=== PATIENT | female | born 1995 | race Asian ===

== ENCOUNTER 2016-12-17 19:25 | Emergency (ER) | payer OTHER ==
--- NOTE | 2016-12-17 19:28 | PDOC ---
History of Present Illness - General History Source: Patient Exam Limitations: No Limitations - History of Present Illness Initial Comments: 12/17/16 20:27 The patient is an otherwise healthy 21 year old female who presents to the ED s/ p loss of consciousness and neck pain earlier today. Patient reports she was not drinking water throughout the day and she was working at her job outside in really hot weather. She reports a sudden onset of lightheadedness and loss consciousness for several seconds. Patient states she felt tired and took a nap after the loss of consciousness. Patient reports neck pain secondary to waking up from her nap. She states her neck pain radiates from the front of her neck to the bilateral sides of her neck and is worsened secondary to swallowing. She also reports neck swelling, now resolved. Patient also reports chest pain upon deep inspiration associated with present symptoms. Denies recent sick contact. Denies fevers or chills. Denies shortness of breath or palpitations. Denies cough. Denies headache. Denies changes in urinary output. Denies any other symptoms. 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 Patient reports smoking 5 cigarettes a day. MEDICATIONS: reviewed ALLERGIES: As per nursing notes General: No fevers or chills, no weakness, no weight loss HEENT: + neck pain, neck swelling No change in vision. No sore throat,. No ear pain CardioVascular: + chest pain. No shortness of breath Respiratory:No cough, or wheezing. Gastrointestinal: no nausea, vomiting, diarrhea or constipation, No rectal bleeding Genitourinary: No dysuria, hematuria, or frequency Musculoskeletal: No joint or muscle pain or swelling Neurologic: + loss of consciousness, lightheadedness. No headache Psychiatric: nor depression Skin: No rashes or easy bruising Endocrine: no increased thirst or abnormal weight change Allergic: no skin or latex allergy All other systems reviewed and normal General: Well-nourished well-developed individual, no acute distress HEENT: + mild erythema in the posterior oropharynx. tonsils normal, no exudate Neck: Supple, no meningeal signs, no lymphadenopathy Eyes::Pupils equal reactive and round, extraocular motion intact Chest: Nontender to palpation Cardiac: S1-S2 normal, regular rate and rhythm, no murmurs rubs or gallops Respiratory: Lungs clear to auscultation bilateral Abdomen: Soft, nondistended, normal bowel sounds, nontender to palpation diffusely Extremities: Warm, dry, no cyanosis, clubbing, or edema Skin: No rashes Neuro: Alert and oriented x3, nonfocal exam, grossly intact, normal gait Psych: Normal mood and affect <Tonia Peace - Last Filed: 12/17/16 20:27> - General History Source: Patient Exam Limitations: No Limitations - History of Present Illness Initial Comments: 12/17/16 20:32 A portion of this note was documented by scribe services under my direction. I have reviewed the details of the note, within reason, and agree with the documentation. The case summary and management plan written by me. Medical decision making: This is a 21-year-old female comes in complaining of sore throat and discomfort radiating from her throat to her upper chest area. Patient has some associated mild pleuritic type chest pain. Patient denies any fevers or chills. She denies any cough or congestion. Patient has had symptoms 1 day. Patient also complained of earlier a mild brief syncopal episode secondary to heat exhaustion and dehydration that she resolved by orally hydrating prior to coming in. Patient was reassured that this is most likely viral in origin however she was also recommended that she stop smoking and follow-up with her primary care if symptoms have not improved within 2-3 days. <Georgina Alonzo I - Last Filed: 12/17/16 20:38> - General Chief Complaint: Pain Stated Complaint: "MY THROAT FEELS SWOLLEN" Time Seen by Provider: 12/17/16 19:28 Past History <Tonia Peace - Last Filed: 12/17/16 20:27> - Immunization History Immunization Up to Date: Yes - Psycho/Social/Smoking Cessation Hx Anxiety: No Suicidal Ideation: No Smoking Status: No Smoking History: Never smoked Number of Cigarettes Smoked Daily: 0 <Georgina Alonzo I - Last Filed: 12/17/16 20:38> - Past Medical History Allergies/Adverse Reactions: Allergies Allergy/AdvReac Type Severity Reaction Status Date / Time No Known Allergies Allergy Verified 12/17/16 19:26 Home Medications: Ambulatory Orders Dextroamphetamine/Amphetamine [Adderall 10 mg Tablet] 20 mg PO BID 12/17/16 *Physical Exam - Vital Signs Last Vital Signs Temp Pulse Resp BP Pulse Ox 98.1 F 62 18 110/67 99 12/17/16 19:38 12/17/16 19:38 12/17/16 19:38 12/17/16 19:38 12/17/16 19:38 <Tonia Peace - Last Filed: 12/17/16 20:27> *DC/Admit/Observation/Transfer - Attestations Scribe Attestion: 12/17/16 20:27 Documentation prepared by Tonia Peace, acting as medical research assistant for Georgina Alonzo MD <Tonia Peace - Last Filed: 12/17/16 20:27> - Discharge Dispostion Admit: No <Georgina Alonzo I - Last Filed: 12/17/16 20:38> Diagnosis at time of Disposition: Viral pharyngitis - Discharge Dispostion Disposition: HOME Condition at time of disposition: Good - Patient Instructions Additional Instructions: Tylenol or Motrin as needed for pain Tylenol or Motrin as needed for pain Return to the emergency department immediately with ANY new, persistent or worsening symptoms. Continue any medications as previously prescribed by your physician. You should follow up with your primary doctor as soon as possible regarding today's emergency department visit. . Please make sure your doctor reviews the results of your emergency evaluation. Thank you for coming to the Emergency Department today for your care. It was a pleasure to see you today. Please note that your evaluation is INCOMPLETE until you follow-up with your doctor.
[2016-12-17 19:45] VITALS: BP 110/67; PULSE 62; TEMP 98.1; BMI 20.8
== END 2016-12-17 20:47 | disposition home or self-care (01) ==
LOC: FER 19:25
DX: J02.8 Acute pharyngitis due to other specified organisms (principal); B97.89 Other viral agents as the cause of diseases classified elsewhere; F17.210 Nicotine dependence, cigarettes, uncomplicated
CPT/HCPCS: 99281-25